=== PATIENT | male | born 1970 ===

== ENCOUNTER 2018-03-22 03:35 | Emergency (ER) | payer BC ==
[2018-03-22 04:12] VITALS: RESP 18; TEMP 98.3
--- NOTE | 2018-03-22 04:21 | ED PDOC ---
Addendum entered and electronically signed by Rayray Torres DO 03/22/18 06:48 : History of Present Illness History of Present Illness: Patient is a 47 year old male with no past medical history presenting to the emergency room with a complaint of abdominal pain. He states that over the past 2 weeks he has been experiencing worsening abdominal pain. The pain is located in his RUQ/epigastric region. It is described as burning in nature and was intermittent until last night when it became constant. He is now nauseous but has not vomited. Patient states that eating food of any kind makes his pain worse. He had been taking tums more and more frequently over the past two weeks with relief in the beginning but is no longer getting any relief. He was unable to sleep last night due to the burning discomfort which brought him into the ED tonight. He has no other complaints at this time. Denies fevers, chills, diarrhea, chest pain, shortness of breath, palpitations, numbness or tingling. Original Note: Arrival/HPI - General Historian: Patient - History of Present Illness Time/Duration: > week (2 weeks) Symptom Course: Worsening Quality: Burning Severity Level: Moderate <Rayray Torres - Last Filed: 03/22/18 06:39> <Jean-Paul Brock - Last Filed: 03/22/18 21:11> - General Chief Complaint: Abdominal Pain Time Seen by Provider: 03/22/18 03:47 Past Medical History - Provider Review Nursing Documentation Reviewed: Yes - Infectious Disease Hx of Infectious Diseases: None <Rayray Torres - Last Filed: 03/22/18 06:39> Family/Social History - Physician Review Nursing Documentation Reviewed: Yes Family/Social History: No Known Family HX <Rayray Torres - Last Filed: 03/22/18 06:39> Allergies/Home Meds <Rayray Torres - Last Filed: 03/22/18 06:39> <Jean-Paul Brock - Last Filed: 03/22/18 21:11> Allergies/Adverse Reactions: Allergies No Known Allergies Allergy (Verified 03/22/18 04:07) Review of Systems - Physician Review All systems were reviewed & negative as marked: Yes - Review of Systems Constitutional: Normal. absent: Fatigue, Fevers Eyes: Normal ENT: Normal Respiratory: Normal. absent: SOB, Cough, Sputum Cardiovascular: Normal. absent: Chest Pain, Palpitations, Calf Pain, CARMEN Gastrointestinal: Abdominal Pain (burning), Constipation, Nausea, Appetite Changes (decreased). absent: Diarrhea, Vomiting Genitourinary Male: Normal. absent: Dysuria, Frequency Musculoskeletal: Normal. absent: Back Pain Skin: Normal Neurological: Normal. absent: Headache, Dizziness Endocrine: Normal Hemo/Lymphatic: Normal Psychiatric: Normal <Rayray Torres - Last Filed: 03/22/18 06:39> Physical Exam Temperature: Afebrile Blood Pressure: Hypertensive Pulse: Regular Respiratory Rate: Normal Appearance: Positive for: Well-Appearing, Non-Toxic, Uncomfortable Pain Distress: None Mental Status: Positive for: Alert and Oriented X 3 - Systems Exam Head: Present: Atraumatic, Normocephalic Pupils: Present: PERRL Extroacular Muscles: Present: EOMI Conjunctiva: Present: Normal Mouth: Present: Moist Mucous Membranes Neck: Present: Normal Range of Motion Respiratory/Chest: Present: Clear to Auscultation, Good Air Exchange. No: Respiratory Distress, Accessory Muscle Use Cardiovascular: Present: Regular Rate and Rhythm, Normal S1, S2. No: Murmurs Abdomen: Present: Tenderness (diffuse, most severe in RUQ), Normal Bowel Sounds , Guarding. No: Distention, Peritoneal Signs, Rebound, Rovsing's Sign Present Back: Present: Normal Inspection Upper Extremity: Present: Normal Inspection, NORMAL PULSES. No: Cyanosis, Edema Lower Extremity: Present: Normal Inspection, NORMAL PULSES. No: Edema, CALF TENDERNESS Neurological: Present: GCS=15, CN II-XII Intact, Speech Normal Skin: Present: Warm, Dry, Normal Color. No: Rashes Lymphatic: No: Cervical Adenopathy Psychiatric: Present: Alert, Oriented x 3, Normal Insight, Normal Concentration <Rayray Torres - Last Filed: 03/22/18 06:39> Vital Signs Temp Pulse Resp BP Pulse Ox 03/22/18 06:59 98.3 F 65 18 140/73 98 03/22/18 04:11 98.3 F 64 18 146/84 96 Medical Decision Making Re-evaluation Time: 06:26 Reassessment Condition: Re-examined, Improved - Lab Interpretations I have reviewed the lab results: Yes Interpretation: All labs normal <Rayray Torres - Last Filed: 03/22/18 06:39> - Lab Interpretations I have reviewed the lab results: Yes <Jean-Paul Brock - Last Filed: 03/22/18 21:11> ED Course and Treatment: Labs, UA Given zofran, toradol, , viscous lido and bentyl will re-assess 03/22/18 06:26 Patient feeling much better, all symptoms resolved. Labs - unremarkable Patient will be discharged home. (Rayray Torres) Impression: Pt seen and evaluated with medical transcription supervisor. Aware and agree with HPI, clinical findings, plan, and management. Pt, with no significant past medical history presented for intermittent burning abdominal for past 2 weeks with associated nausea. Plan: -- Labs, lipase -- Urinalysis -- Elixir -- Maalox -- Viscous Lidocaine -- Zofran -- Toradol -- Reassess and disposition (Jean-Paul Brock) - Lab Interpretations Lab Results: 03/22/18 04:50 03/22/18 04:50 Lab Results 03/22/18 04:50: Urine Color Yellow, Urine Appearance Clear, Urine pH 8.0, Ur Specific [place] 1.015, Urine Protein Trace H, Urine Glucose (UA) Negative, Urine Ketones 15 H, Urine Blood Negative, Urine Nitrate Negative, Urine Bilirubin Negative, Urine Urobilinogen 1.0 H, Ur Leukocyte Esterase Negative, Urine RBC 0 - 2, Urine WBC 0 - 2, Ur Epithelial Cells 0 - 2, Amorphous Sediment Few 03/22/18 04:50: Sodium 140, Potassium 4.1, Chloride 101, Carbon Dioxide 26, Anion Gap 16, BUN 15, Creatinine 1.1, Est GFR ( Amer) > 60, Est GFR (Non- Af Amer) > 60, Random Glucose 99, Calcium 9.5, Magnesium 2.0, Total Bilirubin 0.9, AST 52, ALT 36, Alkaline Phosphatase 53, Total Protein 7.7, Albumin 4.4, Globulin 3.4, Albumin/Globulin Ratio 1.3, Lipase 67 03/22/18 04:50: WBC 10.6, RBC 4.78, Hgb 16.6, Hct 48.2, MCV 100.8, MCH 34.7, MCHC 34.4, RDW 11.8, Plt Count 240, MPV 9.7, Gran % 74.4 H, Lymph % (Auto) 16.4 L, [place] % (Auto) 8.5 H, Eos % (Auto) 0.5 L, Baso % (Auto) 0.2, Gran # 7.91 H, Lymph # (Auto) 1.7, [place] # (Auto) 0.9 H, Eos # (Auto) 0.1, Baso # (Auto) 0.02 - Medication Orders Current Medication Orders: Discontinued Medications Al Hydrox/Mg Hydrox/Simethicone (Maalox Plus 30 Ml) 30 ml PO STAT STA Stop: 03/22/18 04:23 Last Admin: 03/22/18 04:57 Dose: 30 ml Belladonna/Phenobarbital ( Elixir) 5 ml PO STAT STA Stop: 03/22/18 04:23 Last Admin: 03/22/18 04:58 Dose: 5 ml Ketorolac Tromethamine (Toradol) 30 mg IVP STAT STA Stop: 03/22/18 04:26 Last Admin: 03/22/18 04:56 Dose: 30 mg MAR Pain Assessment Document 03/22/18 04:56 MALIA (Rec: 03/22/18 04:56 MALIA [id number]) Pain Reassessment Is this a pain reassessment? Yes Location Pain Location Body Site Abdomen IVP Administration Document 03/22/18 04:56 MALIA (Rec: 03/22/18 04:56 MALIA [id number]) Charges for Administration # of IVP Administrations 1 Lidocaine HCl (Lidocaine 2% Viscous) 15 ml PO STAT STA Stop: 03/22/18 04:23 Last Admin: 03/22/18 04:59 Dose: 15 ml Ondansetron HCl (Zofran Inj) 4 mg IVP STAT STA Stop: 03/22/18 04:26 Last Admin: 03/22/18 04:56 Dose: 4 mg IVP Administration Document 03/22/18 04:56 MALIA (Rec: 03/22/18 04:57 MALIA [id number]) Charges for Administration # of IVP Administrations 1 - PA / DEPARTMENTAL BUYER / Resident Statement / has reviewed & agrees with the documentation as recorded. / has examined the patient and agrees with the treatment plan. <Jean-Paul Brock - Last Filed: 03/22/18 21:11> Disposition/Present on Arrival - Present on Arrival Any Indicators Present on Arrival: No History of DVT/PE: No History of Uncontrolled Diabetes: No Urinary Catheter: No History of Decub. Ulcer: No History Surgical Site Infection Following: None - Disposition Have Diagnosis and Disposition been Completed?: Yes Disposition Time: 06:28 Patient Plan: Discharge <Rayray Torres - Last Filed: 03/22/18 06:39> <Jean-Paul Brock - Last Filed: 03/22/18 21:11> - Disposition Diagnosis: Gastro-esophageal reflux Disposition: HOME/ ROUTINE Condition: IMPROVED Discharge Instructions (ExitCare): Acid Reflux (Gastroesophageal Reflux Disease ), Adult (DC) Additional Instructions: Patient is to be discharged home. He is to follow up with his primary care physician within 2-3 days. If the patient experiences any new or worsening symptoms, please go to the nearest emergency room. Prescriptions: Pantoprazole [Protonix EC Tab] 20 mg PO DAILY #14 ect Referrals: [facility] [Outside] - Follow up with primary Forms: [employer] (Icelandic)
[2018-03-22] MEDS ORDERED: Atrop/Hyosc/Scopal/PB Elixir (120 ml) PO STA (04:22)
[2018-03-22] MEDS ORDERED: Alum-Mag Hydrox-Simethicone Susp (30 mL) PO STA (04:22)
[2018-03-22 05:16] LABS: BASO # 0.02 K/mm3 (0.0-2.0); BASO % 0.2 % (0.0-3.0); EOS # 0.1 (0.0-0.7); EOS % 0.5 % (1.5-5.0); GRAN # 7.91 (1.4-6.5); GRAN % 74.4 % (50.0-68.0); HEMOGLOBIN 16.6 g/dL (14.0-18.0); LYMPH # 1.7 (1.2-3.4); LYMPH % 16.4 % (22.0-35.0); MEAN CELL VOLUME 100.8 fl (80.0-105.0); MEAN CORPUSCULAR HEMOGLOBIN 34.7 pg (25.0-35.0); MEAN CORPUSCULAR HGB CONC 34.4 g/dl (31.0-37.0); MEAN PLATELET VOLUME 9.7 fl (7.0-11.0); MONO # 0.9 (0.1-0.6); MONO % 8.5 % (1.0-6.0); RBC 4.78 10^6/uL (3.5-6.1); RED CELL DISTRIBUTION WIDTH 11.8 % (11.5-14.5); WHITE BLOOD COUNT 10.6 10^3/ul (4.5-11.0)
[2018-03-22 05:17] LABS: URINE BILIRUBIN NEGATIVE (NEGATIVE); URINE BLOOD NEGATIVE (NEGATIVE); URINE GLUCOSE (UA) NEGATIVE (NEGATIVE); URINE LEUKOCYTE ESTERASE NEGATIVE Leu/uL (NEGATIVE); URINE PROTEIN TRACE mg/dL (<30 mg/dL)
[2018-03-22 05:24] LABS: URINE APPEARANCE CLEAR (CLEAR); URINE COLOR YELLOW (YELLOW)
[2018-03-22 05:29] LABS: URINE AMORPHOUS SEDIMENT FEW; URINE EPITHELIAL CELLS 0 - 2 /hpf (0-5); URINE RBC 0 - 2 /hpf (0-2); URINE WBC 0 - 2 /hpf (0-6)
[2018-03-22 06:09] LABS: ALB/GLOB RATIO 1.3 (1.1-1.8); ALBUMIN 4.4 g/dL (3.0-4.8); ALT/SGPT 36 U/L (7-56); AST/SGOT 52 U/L (17-59); BLOOD UREA NITROGEN 15 mg/dL (7-21); CALCIUM 9.5 mg/dL (8.4-10.5); GFR AFRICAN-AMERICAN > 60; GFR NON-AFRICAN AMERICAN > 60; LIPASE 67 U/L (23-300)
[2018-03-22 07:00] VITALS: BP 140/73; PULSE 65; O2SAT 98
== END 2018-03-22 07:01 | disposition home or self-care (01) ==
LOC: ED 03:35
DX: K21.9 Gastro-esophageal reflux disease without esophagitis (principal)
CPT/HCPCS: 80053; 81001; 83690; 83735; 85025; 96374; 96375; 99284; J1885; J2405

== ENCOUNTER 2018-04-21 00:30 | Emergency (ER) | payer BC ==
[2018-04-21] MEDS ORDERED: Morphine 4 mg/ml ISec IVP STA (01:22)
[2018-04-21] MEDS ORDERED: Sodium Chloride 0.9% 1,000 ML IV STA (01:22)
--- NOTE | 2018-04-21 01:30 | ED PDOC ---
Arrival/HPI - General Chief Complaint: Abdominal Pain Time Seen by Provider: 04/21/18 01:09 Historian: Patient - History of Present Illness Narrative History of Present Illness (Text): 04/21/18 01:28 47 year old male,with no significant past medical history, presents to the emergency department complaining of intermittent abdominal pain that began 3-4 months ago. Patient reports worsening pain after eating [place] food tonight and decided to come in for evaluation Patient denies any fever, chills, chest pain, shortness of breath, nausea, vomiting, diarrhea, urinary symptoms, back pain, neck pain, headache, dizziness, or any other complaints. Time/Duration: Other (3-4 months) Symptom Course: Intermittent, Worsening Activities at Onset: Light Context: Home Past Medical History - Provider Review Nursing Documentation Reviewed: Yes - Infectious Disease Hx of Infectious Diseases: None - Psychiatric Hx Substance Use: No Family/Social History - Physician Review Nursing Documentation Reviewed: Yes Family/Social History: No Known Family HX Smoking Status: Light Smoker < 10 Cigarettes Daily Hx Alcohol Use: Yes Hx Substance Use: No Allergies/Home Meds Allergies/Adverse Reactions: Allergies No Known Allergies Allergy (Verified 03/22/18 04:07) Review of Systems - Physician Review All systems were reviewed & negative as marked: Yes - Review of Systems Constitutional: absent: Fevers, Other (Chills) Respiratory: absent: SOB Cardiovascular: absent: Chest Pain Gastrointestinal: Abdominal Pain. absent: Diarrhea, Nausea, Vomiting Genitourinary Male: absent: Dysuria, Frequency, Hematuria Musculoskeletal: absent: Back Pain, Neck Pain Neurological: absent: Headache, Dizziness Physical Exam Vital Signs Reviewed: Yes Vital Signs Temp Pulse Resp BP Pulse Ox 04/21/18 04:36 82 17 122/78 98 04/21/18 01:07 97.5 F L 65 18 146/83 99 Temperature: Afebrile Blood Pressure: Normal Pulse: Regular Respiratory Rate: Normal Appearance: Positive for: Well-Appearing, Non-Toxic, Comfortable Pain Distress: None Mental Status: Positive for: Alert and Oriented X 3 - Systems Exam Head: Present: Atraumatic, Normocephalic Pupils: Present: PERRL Extroacular Muscles: Present: EOMI Conjunctiva: Present: Normal Mouth: Present: Moist Mucous Membranes Neck: Present: Normal Range of Motion Respiratory/Chest: Present: Clear to Auscultation, Good Air Exchange. No: Respiratory Distress, Accessory Muscle Use Cardiovascular: Present: Regular Rate and Rhythm, Normal S1, S2. No: Murmurs Abdomen: Present: Tenderness (diffuse tenderness to the LLQ). No: Distention, Peritoneal Signs Back: Present: Normal Inspection Upper Extremity: Present: Normal Inspection. No: Cyanosis, Edema Lower Extremity: Present: Normal Inspection. No: Edema Neurological: Present: GCS=15, CN II-XII Intact, Speech Normal Skin: Present: Warm, Dry, Normal Color. No: Rashes Psychiatric: Present: Alert, Oriented x 3, Normal Insight, Normal Concentration Medical Decision Making ED Course and Treatment: 04/21/18 01:00 Impression: 47 year old male presents complaining of intermittent abdominal pain for the past 3-4 months that worsened tonight. Differential Diagnosis included but are not limited to: Diverticulitis Plan: -- VBG -- Labs -- ABD & Pelvis PO & IV Contrast -- Morphine, IV Fluids, Zofran Inj -- Urinalysis -- Reassess and disposition Prior Visits: Notes and results from previous visits were reviewed. Patient was last seen in the emergency department on 03/22/18 presents complaining of RUQ/epigastric abdominal pain for the past 2 weeks. Patient was discharged. Progress Notes: EXAM: CT Abdomen and Pelvis With Intravenous Contrast Dictated and Authenticated by: Pia Marmolejo MD 04/21/2018 4:35 AM IMPRESSION: No acute findings 04/21/18 04:56 On re-evaluation, patient feels better and is in no acute distress. I have discussed the results and plan with the patient, who expresses understanding. Patient in agreement with plan to be discharged home. Patient is stable for discharge. Patient was instructed to follow up with physician or return if symptoms worsen or new concerning symptoms arise. - Lab Interpretations Lab Results: 04/21/18 01:40 04/21/18 01:40 Lab Results 04/21/18 04:01: Urine Color Yellow, Urine Appearance Clear, Urine pH 6.0, Ur Specific [place] 1.010, Urine Protein Negative, Urine Glucose (UA) Negative, Urine Ketones Negative, Urine Blood Negative, Urine Nitrate Negative, Urine Bilirubin Negative, Urine Urobilinogen 0.2, Ur Leukocyte Esterase Negative 04/21/18 02:20: pO2 159 H, VBG pH 7.38, VBG pCO2 46.0, VBG HCO3 27.2, VBG Total CO2 28.6 H, VBG O2 Sat (Calc) 99.5 H, VBG Base Excess 1.5, VBG Potassium 4.2, Glucose 104, Lactate 0.8, FiO2 21.0, Sodium 137.0, Chloride 104.0, Venous Blood Potassium 4.2 04/21/18 01:40: Sodium 142, Potassium 4.1, Chloride 103, Carbon Dioxide 26, Anion Gap 17, BUN 18, Creatinine 1.0, Est GFR ( Amer) > 60, Est GFR (Non- Af Amer) > 60, Random Glucose 104, Calcium 9.3, Total Bilirubin 0.6, AST 32, ALT 32, Alkaline Phosphatase 69, Total Protein 7.2, Albumin 4.0, Globulin 3.2, Albumin/Globulin Ratio 1.3, Lipase 55 04/21/18 01:40: PT 10.4, INR 0.91 L 04/21/18 01:40: WBC 8.7, RBC 4.53, Hgb 15.4, Hct 44.4, MCV 98.0, MCH 34.0, MCHC 34.7, RDW 11.6, Plt Count 225, MPV 9.5, Gran % 67.5, Lymph % (Auto) 19.4 L, [place] % (Auto) 11.3 H, Eos % (Auto) 1.6, Baso % (Auto) 0.2, Gran # 5.87, Lymph # (Auto) 1.7, [place] # (Auto) 1.0 H, Eos # (Auto) 0.1, Baso # (Auto) 0.02 I have reviewed the lab results: Yes - RAD Interpretation Radiology Orders: 04/21/18 01:23 ABD PELVIS PO & IV CONTRAST [CT] Stat - Medication Orders Current Medication Orders: Discontinued Medications Sodium Chloride (Sodium Chloride 0.9%) 1,000 mls @ 999 mls/hr IV .Q1H1M STA Stop: 04/21/18 02:22 Last Admin: 04/21/18 01:59 Dose: 999 mls/hr eMAR Start Stop Document 04/21/18 01:59 IT (Rec: 04/21/18 02:00 IT [id number]) Intravenous Solution Start Date 04/21/18 Start Time 02:00 End Date 04/21/18 Morphine Sulfate (Morphine) 4 mg IVP STAT STA Stop: 04/21/18 01:23 Last Admin: 04/21/18 01:59 Dose: 4 mg MAR Pain Assessment Document 04/21/18 01:59 IT (Rec: 04/21/18 01:59 IT [id number]) Pain Reassessment Is this a pain reassessment? No Sleep Is patient sleeping during reassessment? No Presence of Pain Presence of Pain Yes Pain Scale Used Pain Scale Used Numeric Location Left, Right or Bilateral Bilateral Pain Location Body Site Abdomen Description Intensity of Pain at present 8 IVP Administration Document 04/21/18 01:59 IT (Rec: 04/21/18 01:59 IT [id number]) Charges for Administration # of IVP Administrations 1 Ondansetron HCl (Zofran Inj) 4 mg IVP STAT STA Stop: 04/21/18 01:23 Last Admin: 04/21/18 01:59 Dose: 4 mg IVP Administration Document 04/21/18 01:59 IT (Rec: 04/21/18 01:59 IT [id number]) Charges for Administration # of IVP Administrations 1 - Scribe Statement The provider has reviewed the documentation as recorded by the Dinora Caraballo Provider Scribe Attestation: All medical record entries made by the Scribe were at my direction and personally dictated by me. I have reviewed the chart and agree that the record accurately reflects my personal performance of the history, physical exam, medical decision making, and the department course for this patient. I have also personally directed, reviewed, and agree with the discharge instructions and disposition. Disposition/Present on Arrival - Present on Arrival Any Indicators Present on Arrival: No History of DVT/PE: No History of Uncontrolled Diabetes: No Urinary Catheter: No History of Decub. Ulcer: No History Surgical Site Infection Following: None - Disposition Have Diagnosis and Disposition been Completed?: Yes Diagnosis: Abdominal pain Disposition: HOME/ ROUTINE Disposition Time: 04:51 Patient Plan: Discharge Discharge Instructions (ExitCare): Acute Abdomen (Belly Pain), Adult (DC) Additional Instructions: Bahai - Everyone of your tests was normal, so I am prescribing some medicine for gas. FOllow up with your doctor. You may need a referral to a personal vehicle advisor. Benjamin- Dr. Enrico Chaves Prescriptions: Simethicone 180 mg PO QID #120 capsule Referrals: FAMILY PROVIDER,NO [Primary Care Provider] - Follow up with primary Forms: [employer] (Gu[place]ian), WORK NOTE
[2018-04-21] MEDS ORDERED: Iohexol 240 (50 ml) ONE (01:41)
[2018-04-21 01:59] LABS: BASO # 0.02 K/mm3 (0.0-2.0); BASO % 0.2 % (0.0-3.0); EOS # 0.1 (0.0-0.7); EOS % 1.6 % (1.5-5.0); GRAN # 5.87 (1.4-6.5); GRAN % 67.5 % (50.0-68.0); HEMOGLOBIN 15.4 g/dL (14.0-18.0); LYMPH # 1.7 (1.2-3.4); LYMPH % 19.4 % (22.0-35.0); MEAN CORPUSCULAR HGB CONC 34.7 g/dl (31.0-37.0); MEAN PLATELET VOLUME 9.5 fl (7.0-11.0); MONO % 11.3 % (1.0-6.0); RBC 4.53 10^6/uL (3.5-6.1); RED CELL DISTRIBUTION WIDTH 11.6 % (11.5-14.5); WHITE BLOOD COUNT 8.7 10^3/ul (4.5-11.0)
[2018-04-21 02:21] LABS: INR 0.91 (0.93-1.08); PROTHROMBIN TIME 10.4 SECONDS (9.4-12.5)
[2018-04-21 02:48] LABS: ALB/GLOB RATIO 1.3 (1.1-1.8); ALT/SGPT 32 U/L (7-56); AST/SGOT 32 U/L (17-59); BLOOD UREA NITROGEN 18 mg/dL (7-21); CALCIUM 9.3 mg/dL (8.4-10.5); GFR AFRICAN-AMERICAN > 60; GFR NON-AFRICAN AMERICAN > 60; LIPASE 55 U/L (23-300)
[2018-04-21 03:07] LABS: VENOUS BLOOD GAS BASE EXCESS 1.5 mmol/L (0.0-2.0); VENOUS BLOOD GAS PO2 159 mm/Hg (30-55); VENOUS BLOOD PH 7.38 (7.32-7.43)
[2018-04-21] MEDS ORDERED: Iohexol 350 MG/100 ML VIAL ONE (03:17)
[2018-04-21 04:18] LABS: URINE BILIRUBIN NEGATIVE (NEGATIVE); URINE BLOOD NEGATIVE (NEGATIVE); URINE GLUCOSE (UA) NEGATIVE (NEGATIVE); URINE LEUKOCYTE ESTERASE NEGATIVE Leu/uL (NEGATIVE); URINE PROTEIN NEGATIVE mg/dL (<30 mg/dL); URINE UROBILINOGEN 0.2 E.U./dL (<1 E.U./dL)
[2018-04-21 04:21] LABS: URINE APPEARANCE CLEAR (CLEAR); URINE COLOR YELLOW (YELLOW)
--- NOTE | 2018-04-21 04:35 | CT ---
EXAM: CT Abdomen and Pelvis With Intravenous Contrast CLINICAL HISTORY: 47 years old, male; Pain; Abdominal pain; Additional info: ? Diverticulitis TECHNIQUE: Axial computed tomography images of the abdomen and pelvis with intravenous contrast. All CT scans at this facility use one or more dose reduction techniques, viz.: automated exposure control; ma/kV adjustment per patient size (including targeted exams where dose is matched to indication; i.e. head); or iterative reconstruction technique. 694 images are submitted. Axial images are submitted at lung and soft tissue windows. Oral contrast was administered. Coronal and sagittal reformatted images were created and reviewed. Axial reformatted images were created and reviewed. CONTRAST: 96 mL of OMNI 350 administered intravenously. COMPARISON: No relevant prior studies available. FINDINGS: Lung bases: Unremarkable. No mass. No consolidation. Mediastinum: Possible small sliding hiatal hernia. ABDOMEN: Liver: There are hepatic hypodensities too small to characterize. Gallbladder and bile ducts: Unremarkable. No ductal dilation. Pancreas: Unremarkable. No mass. No ductal dilation. Spleen: Unremarkable. No splenomegaly. Adrenals: Unremarkable. No mass. Kidneys and ureters: Unremarkable. No solid mass. No hydronephrosis. Stomach and bowel: Large amount of stool in the colon. Correlation with patient's clinical history of constipation is recommended. Diverticulosis. Nonspecific thickening of the sigmoid colon likely due to underdistention versus nonspecific colitis. PELVIS: Appendix: Normal appendix. Bladder: Bladder distention Reproductive: Prostate gland is seen. ABDOMEN and PELVIS: Intraperitoneal space: Unremarkable. No free air. No significant fluid collection. Bones/joints: No acute fracture. No dislocation. Soft tissues: Unremarkable. Vasculature: The aorta demonstrates calcified plaque and is mildly ectatic but normal in caliber. No abdominal aortic aneurysm. Lymph nodes: Bilateral groin lymph nodes. IMPRESSION: No acute findings.
[2018-04-21 04:36] VITALS: RESP 17
[2018-04-21 05:07] VITALS: BP 120/82; PULSE 72; TEMP 98.2; O2SAT 100
== END 2018-04-21 05:07 | disposition home or self-care (01) ==
LOC: ED 00:30
DX: R10.9 Unspecified abdominal pain (principal)
CPT/HCPCS: 74177; 80053; 81003; 82803; 83690; 85025; 85610; 96374; 96375; 99283; J2270; J2405; J7030; Q9966; Q9967